=== PATIENT | male | born 1970 | race Caucasian/White ===

== ENCOUNTER → 2021-01-11 | Outpatient (CLI) | payer OTHER ==
[~2021-01-11] MED LIST: MOBIC7.5 MG PO; NORCO 7.5-3251 EACH PO; Z.0.PROTONIX40 MG PO; Z.0.SINGULAIR10 MG PO
== END ==
LOC: MRI 07:11
PROVIDERS: ATTEND Family Medicine
DX: M54.2 Cervicalgia (principal); R20.2 Paresthesia of skin; Z98.890 Other specified postprocedural states
CPT/HCPCS: 72141

== ENCOUNTER → 2021-01-17 | Outpatient (CLI) | payer OTHER | LOC: US 12:36 | PROVIDERS: ATTEND Family Medicine | DX: E04.1 Nontoxic single thyroid nodule (principal) | CPT/HCPCS: 76536 ==

== ENCOUNTER → 2021-02-07 | Outpatient (CLI) | payer OTHER | LOC: US 10:37 | PROVIDERS: ATTEND Family Medicine | DX: N28.1 Cyst of kidney, acquired (principal) | CPT/HCPCS: 76770 ==

== ENCOUNTER → 2021-02-23 | Outpatient (CLI) | payer OTHER ==
[~2021-02-23] MED LIST changes: +IOPAMIDOL 370 MG/ML 200 ML INFUS..BTL INJ ONE; +SODIUM CHLORIDE 0.9% 50ML 0 ML ONE; +SODIUM CHLORIDE 0.9% 50ML 50 ML ONE
== END ==
LOC: CT 13:33
PROVIDERS: ATTEND Family Medicine
DX: N28.1 Cyst of kidney, acquired (principal); R93.89 Abnormal findings on diagnostic imaging of other specified body structures
CPT/HCPCS: 74170; Q9967